=== PATIENT | male | born 1965 | race Caucasian/White ===

== ENCOUNTER 2017-08-20 22:09 | Emergency (ER) | payer OTHER, BC ==
[~2017-08-20] VITALS: Ht 182.9 cm; Wt 95.6 kg
[2017-08-20 22:13] VITALS: BP 158/92; PULSE 89; RESP 16; TEMP 98; O2SAT 98
[2017-08-21 00:28] VITALS: BP 156/98; PULSE 82; RESP 16; O2SAT 97
[2017-08-21] MEDS ORDERED: DIPHTH/TETANUS/ACEL PERTUSSIS (BOOSTER) 0.5 ML VIAL/PFS IM ONE (01:30)
[2017-08-21] MEDS ORDERED: SODIUM CHLORIDE 0.9% FLUSH 10 ML FLUSH IVF PRN (01:30)
[2017-08-21] MEDS ORDERED: KETOROLAC TROMETHAMINE 30 MG/ML (IVP) VIAL IV PUSH ONE (01:30)
[2017-08-21 01:39] VITALS: O2SAT 97
[2017-08-21 01:41] LABS: AUTOMATED NEUTROPHIL # 8.6 TH/MM3 (1.8-7.7); BASOPHIL # 0.3 TH/MM3 (0-0.2); BASOPHIL % 2.5 % (0.0-2.0); EOSINOPHIL # 0.1 TH/MM3 (0-0.4); EOSINOPHIL % 0.6 % (0.0-4.0); HEMATOCRIT 47.5 % (39.0-51.0); HEMO FLAGS DIFF FINAL; LYMPH % 12.2 % (9.0-44.0); LYMPHOCYTE # 1.4 TH/MM3 (1.0-4.8); MEAN CELL VOLUME 85.3 FL (80.0-100.0); MEAN CORPUSCULAR HEMOGLOBIN 28.4 PG (27.0-34.0); MEAN CORPUSCULAR HGB CONC 33.3 % (32.0-36.0); MONO % 8.4 % (0.0-8.0); NEUT % 76.3 % (16.0-70.0); PLATELET COUNT 204 TH/MM3 (150-450); RED BLOOD COUNT 5.57 MIL/MM3 (4.50-5.90); WHITE BLOOD COUNT 11.4 TH/MM3 (4.0-11.0)
[2017-08-21 01:50] LABS: CHLORIDE 104 MEQ/L (98-107); SODIUM (NA) 137 MEQ/L (136-145)
[2017-08-21 01:53] LABS: ANION GAP 8 MEQ/L (5-15); BICARBONATE 24.8 MEQ/L (21.0-32.0); BLOOD UREA NITROGEN 16 MG/DL (7-18)
[2017-08-21 01:54] LABS: APTT (PATIENT) 26.1 SEC (24.3-30.1); INTERNATIONAL NORMALIZED RATIO 0.9 RATIO; PROTHROMBIN TIME - PATIENT 10.3 SEC (9.8-11.6)
[2017-08-21 01:56] LABS: GLOMERULAR FILTRATION RATE 70 ML/MIN (>89)
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
[2017-08-21] MEDS ORDERED: ROBA750T PO (03:02)
[2017-08-21 03:41] VITALS: BP 135/85
--- NOTE | 2017-08-22 23:07 | EKG ---
Date Performed: 08/21/2017 Time Performed: 01:27:14 PTAGE: 52 years EKG: Sinus rhythm POSSIBLE RIGHT VENTRICULAR CONDUCTION DELAY BORDERLINE ECG NO PREVIOUS TRACING DOCTOR: Raphael Sepulveda Interpretating Date/Time 08/22/2017 23:07:19
== END 2017-08-21 03:43 | disposition home or self-care (01) ==
LOC: PHED 22:09
DX: S16.1XXA Strain of muscle, fascia and tendon at neck level, initial encounter (principal); S20.219A Contusion of unspecified front wall of thorax, initial encounter; S96.912A Strain of unspecified muscle and tendon at ankle and foot level, left foot, initial encounter; R94.31 Abnormal electrocardiogram [ECG] [EKG]; Z23 Encounter for immunization; Z72.0 Tobacco use; V89.2XXA Person injured in unspecified motor-vehicle accident, traffic, initial encounter
CPT/HCPCS: 71010; 72125; 72170; 73610; 80048; 84484; 85025; 85610; 85730; 86850; 86900; 86901; 90471; 90715; 93005; 96374; 99285; J1885; L0172